=== PATIENT | female | born 1990 | race Caucasian/White ===

== ENCOUNTER 2019-01-27 09:09 | Emergency (ER) | payer BC | END 2019-01-27 12:07 | disposition home or self-care (01) | LOC: ER 09:09 ==

== ENCOUNTER 2019-02-07 05:33 | Outpatient (CLI) | payer BC ==
[~2019-02-07] VITALS: Ht 160 cm; Wt 80.3 kg
[~2019-02-07 05:33] MED LIST: AA/A14DR2 EACH EAR; ACHD5005 PO; ALBU17AE3; BIOT800T PO; CINN500C2 PO; CIPR500T4 PO; CIPR7.5D2 OT; CRAN250C2 PO; FLUO20CA42 PO; IBUP-1780 PO; MIDRIN; NORE1TAB43; OMG1KC PO; OXYC-465 PO; POLY119P5 PO; PREN-37 PO
[2019-02-07] MEDS ORDERED: CETI10TA17 PO (14:52)
== END 2019-02-07 15:01 | disposition home or self-care (01) ==
LOC: PREOP 05:33
PROVIDERS: ATTEND Obstetrics & Gynecology
DX: Z01.818 Encounter for other preprocedural examination (principal)

== ENCOUNTER 2019-02-12 11:17 | Day surgery (SDC) | payer BC ==
[~2019-02-12] VITALS: Ht 160 cm; Wt 80.3 kg
[2019-02-12] VITALS (11 sets, daily range): BP systolic 109–119; BP diastolic 56–86
[~2019-02-12 11:17] MED LIST changes: +CETI10TA17 PO
[2019-02-12] MEDS ORDERED: ceFAZolin INJECTION 1,000 MG in WATER (STERILE) FOR INJECTION 10 ML IV ONE (11:30)
[2019-02-12 12:07] LABS: BASOPHILS % (AUTO) 0 % (0-10); EOSINOPHILS # (AUTO) 0.1 10^3/uL (0.0-0.3); EOSINOPHILS % (AUTO) 2 % (0-10); HEMATOCRIT 34 % (35-52); HEMOGLOBIN 11.4 G/DL (11.5-16.0); LYMPHOCYTES # (AUTO) 2.2 X 10^3 (1.0-4.0); LYMPHOCYTES % (AUTO) 28 % (12-44); MEAN CORPUSCULAR HEMOGLOBIN 29 PG (25-34); MEAN CORPUSCULAR HGB CONC 34 G/DL (32-36); MEAN CORPUSCULAR VOLUME 86 FL (80-99); MEAN PLATELET VOLUME 9.1 FL (7.4-10.4); MONOCYTES # (AUTO) 0.4 X 10^3 (0.0-1.0); MONOCYTES % (AUTO) 5 % (0-12); NEUTROPHILS % (AUTO) 65 % (42-75); PLATELET COUNT 258 10^3/uL (130-400); RED CELL DISTRIBUTION WIDTH 13.2 % (10.0-14.5); WHITE BLOOD COUNT 7.7 10^3/uL (4.3-11.0)
[2019-02-12] MEDS: LACTATED RINGERS 1,000 ML IV PRN ×2 (12:13→13:45)
[2019-02-12] MEDS ORDERED: DIPH25CA79 PO (12:15)
[2019-02-12] MEDS ORDERED: FAMOTIDINE 20MG/2ML IV (PEPCID) ONE (12:20)
[2019-02-12] MEDS ORDERED: ONDANSETRON 4 MG/2 ML (SDV) Z0FRAN ONE ×2 (12:20→14:08)
[2019-02-12] MEDS ORDERED: SCOPOLAMINE 1.5 MG (TRANSDERM-SCOP) PATCH ONE (12:20)
[2019-02-12] MEDS ORDERED: ONDANSETRON 4 MG/2 ML (SDV) Z0FRAN IV ONE (12:30)
[2019-02-12] MEDS ORDERED: FAMOTIDINE 20MG/2ML IV (PEPCID) IV ONE (12:30)
[2019-02-12] MEDS ORDERED: SCOPOLAMINE 1.5 MG (TRANSDERM-SCOP) PATCH TOP ONE (12:30)
[2019-02-12] MEDS ORDERED: BUPIVACAINE 0.25% 30 ML (SENSORCAINE) VIAL ONE (12:46)
[2019-02-12] MEDS ORDERED: D5 LR IV SOLUTION 1,000 ML IV SCH (12:56)
--- NOTE | 2019-02-12 12:56 | Progress Note-Post Operative ---
Post-Operative Progess Note Surgeon (s)/Cut And Print Machine Operator (s) Surgeon JHONATHAN MCCAULEY MD Cut And Print Machine Operator: Monika Pre-Operative Diagnosis Chronic pelvic pain and history of endometriosis Post-Operative Diagnosis Same with recurrent endometriosis Procedure & Operative Findings Date of Procedure 02/12/19 Procedure Performed/Findings Laparoscopic destruction of endometriosis Anesthesia Type GETA Estimated Blood Loss Estimated blood loss (mL): Minimal Specimens/Packing Specimens Removed none JHONATHAN MCCAULEY MD Feb 12, 2019 12:56
--- NOTE | 2019-02-12 12:56 | Progress Note-Pre Operative ---
Pre-Operative Progress Note H&P Reviewed The H&P was reviewed, patient examined and no changes noted. Date Seen by Provider: Feb 12, 2019 Time Seen by Provider: 12:56 Date H&P Reviewed: Feb 12, 2019 Time H&P Reviewed: 12:56 Pre-Operative Diagnosis: Chronic pelvic pain and history of endometriosis JHONATHAN MCCAULEY MD Feb 12, 2019 12:56
[2019-02-12] MEDS ORDERED: OXYC1TAB87 PO (12:59)
[2019-02-12] MEDS ORDERED: IBUP-1780 PO (12:59)
[2019-02-12] MEDS ORDERED: PROMETHAZINE INJ 25 MG/ML (PHENERGAN) AMP IM ONE (13:00)
[2019-02-12] MEDS ORDERED: ONDANSETRON 4 MG/2 ML (SDV) Z0FRAN IVP PRN ×2 (13:00→14:45)
[2019-02-12] MEDS ORDERED: KETOROLAC 30 MG/ML VIAL IVP ONE (13:00)
[2019-02-12] MEDS ORDERED: MEPERIDINE (DEMEROL) INJ 100 MG/ML IM ONE (13:00)
[2019-02-12] MEDS ORDERED: oxyCODONE/APAP 5/325MG (PERCOCET 5) TABLET PO PRN (13:00)
--- NOTE | 2019-02-12 13:00 | Discharge Instructions ---
Discharge Instructions Discharge Medications New, Converted or Re-Newed RX: RX on Chart Patient Instructions Return to The Hospital For: As instructed Activity & Diet Activity as Tolerated: No Orders-Post D/C & Referrals Follow Up Appt: Call to make follow up appt. for patient in 1 week for suture removal. Activity: Rest for 24 hours, than as tolerated. Wound Care: May remove Band-Aid tomorrow. Replace as desired. Keep incisions clean and dry. Wash daily with soap and water. Please call in RX to patient pharmacy. Diet: As tolerated-Clear Liquids only if nauseated. shower or tub bathe as desired. No driving for 24 hours, no alcoholic beverages for 24 hours, and nothing per vagina (no tampons, douching, or intercourse) for 2 weeks. Patient to return to the clinic as soon as possible for: Temperature greater than 101F, Severe Pain, Foul discharge from incision or vagina, Excessive Bleeding (more than a period). JHONATHAN MCCAULEY MD Feb 12, 2019 13:00
[2019-02-12] MEDS ORDERED: MIDAZOLAM 2 MG/2 ML (VERSED) VIAL ONE (13:07)
[2019-02-12] MEDS ORDERED: fentaNYL INJECTION 100 MCG/2 ML AMP ONE (13:07)
[2019-02-12] MEDS ORDERED: DEXAMETHASONE 10 MG/ML (DECADRON) 1 ML VIAL ONE (14:08)
[2019-02-12] MEDS ORDERED: SEVOFLURANE (ULTANE) 15 ML INHAL SOLN ONE (14:08)
[2019-02-12] MEDS ORDERED: proPOfol 200 MG/20 ML (DIPRIVAN) VIAL IV ONE (14:08)
[2019-02-12] MEDS ORDERED: ROCURONIUM 10 MG/ML 5 ML SYRINGE IV ONE (14:08)
[2019-02-12] MEDS ORDERED: NEOSTIGMINE 3 MG/3 ML VIAL ONE (14:08)
[2019-02-12] MEDS ORDERED: LIDOCAINE PF 2% 5 ML (XYLOCAINE) VIAL ONE (14:08)
[2019-02-12] MEDS ORDERED: GLYCOPYRROLATE 0.2 MG/ML (ROBINUL) 2 ML VIAL ONE (14:08)
[2019-02-12] MEDS ORDERED: morphine INJ 10 MG/ML 1ML (SYR OR VIAL) ONE (14:38)
[2019-02-12] MEDS ORDERED: MEPERIDINE (DEMEROL) INJ 50 MG/ML ONE (14:38)
[2019-02-12] MEDS ORDERED: HYDROmorphone 2 MG/ML VIAL (DILAUDID) IV ONE (14:45)
[2019-02-12] MEDS ORDERED: morphine INJ 10 MG/ML 1ML (SYR OR VIAL) IVP ONE (14:45)
[2019-02-12] MEDS ORDERED: MEPERIDINE (DEMEROL) INJ 50 MG/ML IVP ONE (15:00)
--- NOTE | 2019-02-12 15:20 | NUR ---
TO AMB SURG FROM [facility] PER CART. QUITE DROWSY, WAKENS TO NAME, RATES PELVIC SURGICAL SITE PAIN 5, BUT BACK TO SLEEP QUICKLY. ICE PACK IN PLACE. PO FLUIDS TO BEDSIDE.
--- NOTE | 2019-02-12 16:45 | NUR ---
MORE AWAKE NOW, RATES LOW PELVIC DISCOMFORT 6. TAKING PO FLUIDS AND CRACKERS WITHOUT PROBLEM. PERCOCET 5/325 MG, ONE TAB, GIVEN PO. ASSIST UP TO BR, GAIT STEADY, VOIDS WITHOUT PROBLEM. SCANT AMOUNT OF BLOODY DRAINAGE ON V-PAD. ASSIST BACK TO BED.
--- NOTE | 2019-02-12 17:20 | NUR ---
PAIN RATED 3, ALERT, TEXTING ON PHONE. STATES SHE IS READY FOR DISMISSAL. NO CHANGE IN SITE ASSESSMENT, CONTINUES TO HAVE ONLY SCANT AMOUNT OF BRIGHT RED BLOODY DRAINAGE ON V-PAD.
--- NOTE | 2019-02-13 00:48 | OPERATIVE REPORT ---
DATE OF SERVICE: 02/12/2019 POSTOPERATIVE DIAGNOSES: Chronic pelvic pain with a history of endometriosis. POSTOPERATIVE DIAGNOSES: Chronic pelvic pain with a history of endometriosis with recurrent endometriosis. OPERATIVE PROCEDURE: Laparoscopic destruction and removal of endometriosis. OPERATIVE DESCRIPTION: With the patient in the supine position under satisfactory general anesthesia, she was repositioned in the dorsal lithotomy position in the [facility] and prepped and draped in the usual fashion for abdominal and vaginal surgery. Weighted speculum was placed in the posterior fornix of vagina, cervix exposed and grasped anteriorly with single tooth tenaculum. Uterus was sounded to 10 cm with uterine sound. The cervix was then serially dilated with Alvin dilators to accommodate a uterine manipulator, which was placed and the bulb filled with 4 mL of air. The tenaculum and speculum were removed and the patient brought in low dorsal lithotomy position. A 5 mm incision made in the patient's left upper quadrant. Veress needle was placed through that incision into the abdominal cavity and correct placement confirmed with water drop test. The abdomen was insufflated with 2.4 liters of carbon dioxide. The Veress needle was removed and a laparoscope introduced. The patient was placed in Trendelenburg allowing the bowel spill out of the pelvis. The abdominal wall was transilluminated and 5 mm ports were placed supraumbilically and suprapubically. Through incisions of those sizes, all three skin incisions were infiltrated with sites were infiltrated with 0.25% Marcaine with epinephrine prior to incision. The pelvis was examined. There were adhesions of the sigmoid to the left pelvic brim. There were endometriosis implants, particularly on the left ovary in the right and left ovarian fossae. There were several surgical pardeep in the pelvis from her appendectomy, those pardeep were removed from both ovaries and from the ovarian fossae on the right and from the cul-de-sac. Those were just removed from her abdomen while we were there. The patient had had an appendectomy that area looked normal. The uterus looked normal. Endometriosis implants on the left fallopian tube and on both ovaries were touched with electrocautery to destroy them. There were endometriosis implants in the left ovarian fossae that were touched with cautery as well and a couple of small areas in the right ovarian fossa. These areas were all touched with electrocautery to destroy the endometriosis. Both ureters were seemed to peristalse and were somewhat away from the areas of dissection. There were some adhesions of the left pelvic brim involving the sigmoid. These adhesions were taken free mobilizing the sigmoid and destroying where endometriosis was involved in the adhesion complexes. Again, the ureter on the left was unroofed, but it was well away from the area of dissection and was peristalsing and was maintained. It was normal integrity. The pelvis was examined now a final time. There was no remaining abnormal pathology in the pelvis. There was no obvious endometriosis implants. There was no bleeding. There were no remaining surgical pardeep except on the cecum where the patient's appendectomy had been performed. At this point, the procedure was terminated. The operative instruments were removed under direct vision as were the ports. The abdomen was evacuated of insufflating gas in the process of removing the ports. The skin incisions were closed with interrupted sutures of 3-0 nylon. The uterine manipulator was removed from the vagina and from the uterus after draining the vulva and the speculum was replaced in the vagina and the cervix examined. There was no bleeding from the cervical os and no bleeding from the puncture site. The patient did have a NuvaRing in place. This was removed at the beginning of the procedure was reinserted at this point. Sponge and needle counts were correct at the end of procedure. Estimated blood loss was minimal. The patient tolerated the procedure well and was uneventfully awakened from her general anesthesia and transferred to recovery room in stable condition with plans for discharge home [facility]. Job ID: [id number] DocumentID: [id number] Dictated Date: 02/12/2019 14:19:44 Package Line Operator Date: 02/13/2019 00:47:26 Dictated By: JHONATHAN MCCAULEY MD
== END 2019-02-12 17:35 | disposition home or self-care (01) ==
LOC: SDC 11:17
PROVIDERS: ATTEND Obstetrics & Gynecology
DX: N80.1 Endometriosis of ovary (principal); G89.29 Other chronic pain; G43.909 Migraine, unspecified, not intractable, without status migrainosus; F32.9 Major depressive disorder, single episode, unspecified; J45.909 Unspecified asthma, uncomplicated; J30.2 Other seasonal allergic rhinitis; D64.9 Anemia, unspecified; K21.9 Gastro-esophageal reflux disease without esophagitis; Z90.49 Acquired absence of other specified parts of digestive tract; Z88.2 Allergy status to sulfonamides; Z88.1 Allergy status to other antibiotic agents; Z79.899 Other long term (current) drug therapy
CPT/HCPCS: 36415; 84703; 85025

== ENCOUNTER 2020-06-10 19:32 | Emergency (ER) | payer BC ==
[~2020-06-10] VITALS: Ht 160 cm; Wt 84.0 kg
[~2020-06-10 19:32] MED LIST changes: +DIPH25CA79 PO; -OXYC-465 PO; +OXYC-556 PO; +OXYC1TAB87 PO
[2020-06-10] MEDS ORDERED: PROMETHAZINE INJ 25 MG/ML (PHENERGAN) AMP IVP ONE (20:15)
[2020-06-10] MEDS ORDERED: NS IV 1000 ML 1,000 ML IV ONE (20:15)
--- NOTE | 2020-06-10 20:20 | ED GI ---
General Chief Complaint: Abdominal/GI Problems Stated Complaint: N/V/D, FEVER, PENDING COVID Source of Information: Patient Exam Limitations: No Limitations History of Present Illness Date Seen by Provider: Jun 10, 2020 Time Seen by Provider: 20:19 Initial Comments This is a 29 yo female who presents with c/o N/V/D since . Recent COVID exposure with pending saliva test. Unable to keep fluids down. Reports subjective fevers and fatigue. No rashes, chest pain, shortness of breath, or abdominal pain. Allergies and Home Medications Allergies Coded Allergies: cephalexin (Unverified Allergy, Mild, 04/08/09) Sulfa (Sulfonamide Antibiotics) (Verified Allergy, Unknown, ANAPHYLAXIS, 02/28/15) Home Medications Biotin 800 Mcg Tablet, 800 MCG PO DAILY, (Reported) Cetirizine HCl 10 Mg Tablet, 10 MG PO DAILY, (Reported) Cinnamon Bark 500 Mg Capsule, 500 MG PO DAILY, (Reported) Ibuprofen 800 Mg Tablet, 800 MG PO Q6H PRN for PAIN Prescribed by: JHONATHAN EMMANUEL on 02/12/19 1259 [place] 3 Polyunsat Fatty Acids 1,000 Mg Cap, 1,000 MG PO DAILY, (Reported) Ondansetron 4 Mg Tab.rapdis, 4 MG PO Q6H PRN for NAUSEA/VOMITING Prescribed by: BO BARRETO on 06/10/202119 Oxycodone HCl/Acetaminophen 1 Each Tablet, 1 TAB PO Q4H PRN for PAIN-MODERATE Prescribed by: JHONATHAN EMMANUEL on 02/12/19 1259 Vit/Iron Fumarate/FA 1 Each Tablet, 1 EACH PO DAILY, (Reported) Patient Home Medication List Home Medication List Reviewed: Yes Review of Systems Review of Systems Constitutional: chills, fever, malaise EENTM: Nose Congestion Respiratory: Cough; Denies Shortness of Air Cardiovascular: No Symptoms Reported Gastrointestinal: See HPI Genitourinary: No Symptoms Reported Musculoskeletal: no symptoms reported Skin: no symptoms reported Psychiatric/Neurological: No Symptoms Reported Endocrine: No Symptoms Reported Hematologic/Lymphatic: No Symptoms Reported Past Ctlreho-Rfyyox-Fizbux Hx Patient Social History Alcohol Beverage of Choice: Wine 2nd Hand Smoke Exposure: No Recent Foreign Travel: No Contact w/Someone Who Travel: No Recent Hopitalizations: No Immunizations Up To Date Date of Pneumonia Vaccine: Jun 06, 2006 Past Medical History Surgeries: Yes (LAPAROSCOPIC/D&C-EMDOMETRIOSIS) Gallbladder, Tonsillectomy Respiratory: Yes (ASTHMA A CHILD) Asthma Cardiac: No Neurological: Yes (MIGRAINES WHEN YOUNGER) Headaches /Migraines Reproductive Disorders: Yes Female Reproductive Disorders: Endometriosis, Polycystic Ovarian Dis Sexually Transmitted Disease: No HIV/AIDS: No Genitourinary: No Gastrointestinal: Yes Gastroesophageal Reflux, Chronic Constipation, Chronic Diarrhea, Irritable Bowel Musculoskeletal: No Endocrine: No HEENT: No Loss of Vision: Denies Hearing Impairment: Denies Cancer: No Psychosocial: Yes (HORMONE PROBLEMS-PROZAC) Integumentary: No Blood Disorders: Yes (ANEMIA) Adverse Reaction/Blood Tranf: No Physical Exam Vital Signs Vital Signs - First Documented 06/10/20 06/10/20 19:55 21:39 Temp 37.1 Pulse 92 Resp 18 B/P (MAP) 130/80 (97) Pulse Ox 100 O2 Delivery Room Air Capillary Refill : Height/Weight/BMI Height: 5'3.00" Weight: 177lbs. 0.0oz. [id number]; 31.4 BMI Method:Stated General Appearance: WD/WN, no apparent distress HEENT: PERRL/EOMI, normal ENT inspection, pharynx normal Neck: non-tender, full range of motion, supple, normal inspection Respiratory: lungs clear, normal breath sounds, no respiratory distress Cardiovascular: normal peripheral pulses, regular rate, rhythm, no murmur Gastrointestinal: normal bowel sounds, non tender, soft Extremities: normal range of motion, non-tender, normal inspection, normal capillary refill Back: normal inspection Neurologic/Psychiatric: no motor/sensory deficits, alert, normal mood/affect, oriented x 3 Skin: normal color, warm/dry Progress/Results/Core Measures Results/Orders Lab Results Laboratory Tests Test 06/10/20 20:04 06/10/20 20:05 Range/Units Serum Test, Qualitative NEGATIVE NEGATIVE Coronavirus 2019 (PRIYA) Positive H Negative Micro Results Microbiology 06/10/20 Influenza Types A,B Antigen (DAMI) - Final, Complete My Orders Orders - BO BARRETO BELL NECK HAMMERER Influenza A And B Antigens (06/10/20 20:15) Covid 19 Inhouse Test (06/10/20 20:15) Hcg,Qualitative Serum (06/10/20 20:15) Ns Iv 1000 Ml (Sodium Chloride 0.9%) (06/10/20 20:15) Promethazine Injection (Phenergan Injec (06/10/20 20:15) Rx-Ondansetron Po (Rx-Zofran Po) (06/10/20 21:13) Ketorolac Injection (Toradol Injection) (06/10/20 21:30) Medications Given in ED Vital Signs/I&O 06/10/20 06/10/20 06/10/20 19:55 21:35 21:39 Temp 37.1 37.1 37.0 Pulse 92 78 Resp 18 15 B/P (MAP) 130/80 (97) 112/61 (97) Pulse Ox 100 98 O2 Delivery Room Air Progress Progress Note : Progress Note Orders placed for IVF, Phenergan for nausea, and COVID, FLU, and preg. test. Also, c/o headache. Given Toradol 15mg IVP. COVID +, reported improvement of nausea and ERAZO. Reviewed discharge plan and she is agreeable with plan. Departure Impression Primary Impression: COVID-19 Disposition: 01 HOME, SELF-CARE Condition: Improved Departure-Patient Inst. Decision time for Depature: 21:17 Referrals: JHONATHAN MCCAULEY MD (PCP/Family) Primary Care Physician Patient Instructions: Coronavirus Disease 2019 (COVID-19) Overview Add. Discharge Instructions: Plan: 1. Discharge home. Isolate at home. The [facility] will get in touch with you and notify you of your release date. 2. May take Tylenol or Ibuprofen as needed for pain per package instructions. 3. May use Zofran as needed every 6 hours for nausea. Drink plenty of fluids. Continue your Albuterol inh. PRN 4. Return for any new or concerning symptoms. All discharge instructions reviewed with patient and/or family. Voiced understanding. Scripts Ondansetron (Ondansetron Odt) 4 Mg Tab.rapdis 4 MG PO Q6H PRN for NAUSEA/VOMITING, #30 TAB 0 Refills Prov: BO BARRETO [employer]K HAMMERER 06/10/20 BO BARRETO [employer] HAMMERER Jun 10, 2020 20:20
[2020-06-10] MEDS ORDERED: RX-ONDANSETRON 4 MG ODT (ZOFRAN) PPK #4 PO STA (21:13)
[2020-06-10] MEDS ORDERED: ONDA4TAB11 PO (21:20)
[2020-06-10] MEDS ORDERED: KETOROLAC 30 MG/ML VIAL IVP ONE (21:30)
[2020-06-10 21:39] VITALS: BP 112/61
== END 2020-06-10 21:39 | disposition home or self-care (01) ==
LOC: EDUNIT# 19:32 → ER 19:36
DX: U07.1 COVID-19 (principal); D64.9 Anemia, unspecified; Z88.1 Allergy status to other antibiotic agents; Z88.2 Allergy status to sulfonamides; Z32.02 Encounter for pregnancy test, result negative
CPT/HCPCS: 84703; 87804; 99284; U0002; 36415; 87635